=== PATIENT | male | born 1990 | race Caucasian/White ===

== ENCOUNTER 2017-01-10 09:57 | Emergency (ER) | payer OTHER ==
[~2017-01-10] VITALS: Ht 180.3 cm; Wt 68.0 kg
[2017-01-10 10:00] VITALS: BP 143/81; PULSE 86; RESP 17; TEMP 97.9; O2SAT 98
[2017-01-10] MEDS ORDERED: SODIUM CHLOR 0.9% 1000 ML INJ 1,000 ML IV ONE (10:11)
[2017-01-10] MEDS ORDERED: ONDANSETRON HCL 4 MG/2 ML VIAL IVP ONE (10:15)
[2017-01-10] MEDS ORDERED: SODIUM CHLORIDE 0.9% FLUSH 10 ML FLUSH IVF PRN (10:15)
--- NOTE | 2017-01-10 10:20 | PD ---
HPI Chief Complaint: Syncope/Near-Syncope Time Seen by Provider: 10:15 Travel History International Travel<30 days: No Contact w/Intl Traveler<30days: No Traveled to known affect area: No History of Present Illness HPI Patient is a 26-year-old male presenting to the emergency department for evaluation of 2 syncopal episodes last night. Patient states that approximately 12:30 AM he was standing in line at the [employer] when he became dizzy, lightheaded and nauseated. He attempted to go outside to sit down when he passed out. He got up again attempting to pay for his items when he states he felt very hot and then had a second syncopal episode. EMS was called and evaluated patient on scene, patient did not want to come to the emergency department last night. He is currently complaining of mild shortness of breath and a midsternal intermittent chest pain which she describes as sharp, lasting for a few seconds and rates it a 4 out of 10. He denies any recent illnesses but reports smoking marijuana consistently. He states that he does not believe it was laced with anything as it was obtained from a reliable source. Patient denies any significant past medical or surgical history. He has no known drug allergies. He does endorse daily tobacco use. [facility] Past Medical History Medical History: Denies Significant Hx Past Surgical History Surgical History: No Previous Surgery Social History Alcohol Use: No Tobacco Use: Yes Substance Use: Yes Allergies-Medications (Allergen,Severity, Reaction): Coded Allergies: UNOBTAINABLE (Unverified , 01/10/17) Review of Systems Except as stated in HPI: all other systems reviewed are Neg General / Constitutional: No: Fever Eyes: No: Blurred Vision HENT: No: Headaches Cardiovascular: Positive: Chest Pain or Discomfort Respiratory: Positive: Shortness of Breath Gastrointestinal: No: Nausea, Abdominal Pain Neurologic: Positive: Weakness (patient states his legs feel "shaky".) Physical Exam Narrative GENERAL: Well-developed, well-nourished, alert male. Resting comfortably in no acute distress. SKIN: Focused skin assessment warm/dry. HEAD: Atraumatic. Normocephalic. EYES: Pupils equal and round. No scleral icterus. No injection or drainage. ENT: No nasal bleeding or discharge. Mucous membranes pink and moist. NECK: Trachea midline. No JVD. CARDIOVASCULAR: Regular rate and rhythm. No murmur appreciated. RESPIRATORY: No accessory muscle use. Clear to auscultation. Breath sounds equal bilaterally. GASTROINTESTINAL: Abdomen soft, non-tender, nondistended. Hepatic and splenic margins not palpable. MUSCULOSKELETAL: No obvious deformities. No clubbing. No cyanosis. No edema. NEUROLOGICAL: Awake and alert. No obvious cranial nerve deficits. Motor grossly within normal limits. Normal speech. PSYCHIATRIC: Appropriate mood and affect; insight and judgment normal. Data Data Last Documented VS Vital Signs Date Time Temp Pulse Resp B/P Pulse Ox O2 Delivery O2 Flow Rate FiO2 01/10/17 10:57 84 14 107/59 100 Room Air 01/10/17 10:00 97.9 Orders Electrocardiogram (01/10/17 10:11) Basic Metabolic Panel (Bmp) (01/10/17 10:11) Complete Blood Count With Diff (01/10/17 10:11) Magnesium (Mg) (01/10/17 10:11) Ecg Monitoring (01/10/17 10:11) Iv Access Insert/Monitor (01/10/17 10:11) Oximetry (01/10/17 10:11) Ondansetron Inj (Zofran Inj) (01/10/17 10:15) Sodium Chloride 0.9% Flush (Ns Flush) (01/10/17 10:15) Sodium Chlor 0.9% 1000 Ml Inj (Ns 1000 M (01/10/17 10:11) Labs Laboratory Tests Test 01/10/17 10:35 White Blood Count 9.3 TH/MM3 Red Blood Count 4.88 MIL/MM3 Hemoglobin 14.2 GM/DL Hematocrit 42.8 % Mean Corpuscular Volume 87.8 FL Mean Corpuscular Hemoglobin 29.2 PG Mean Corpuscular Hemoglobin 33.2 % Concent Red Cell Distribution Width 12.4 % Platelet Count 218 TH/MM3 Mean Platelet Volume 7.7 FL Neutrophils (%) (Auto) 62.7 % Lymphocytes (%) (Auto) 28.7 % Monocytes (%) (Auto) 6.9 % Eosinophils (%) (Auto) 1.5 % Basophils (%) (Auto) 0.2 % Neutrophils # (Auto) 5.8 TH/MM3 Lymphocytes # (Auto) 2.7 TH/MM3 Monocytes # (Auto) 0.6 TH/MM3 Eosinophils # (Auto) 0.1 TH/MM3 Basophils # (Auto) 0.0 TH/MM3 CBC Comment DIFF FINAL Differential Comment MDM Medical Decision Making Medical Screen Exam Complete: Yes Emergency Medical Condition: Yes Interpretation(s) Laboratory Tests Test 01/10/17 10:35 White Blood Count 9.3 TH/MM3 Red Blood Count 4.88 MIL/MM3 Hemoglobin 14.2 GM/DL Hematocrit 42.8 % Mean Corpuscular Volume 87.8 FL Mean Corpuscular Hemoglobin 29.2 PG Mean Corpuscular Hemoglobin 33.2 % Concent Red Cell Distribution Width 12.4 % Platelet Count 218 TH/MM3 Mean Platelet Volume 7.7 FL Neutrophils (%) (Auto) 62.7 % Lymphocytes (%) (Auto) 28.7 % Monocytes (%) (Auto) 6.9 % Eosinophils (%) (Auto) 1.5 % Basophils (%) (Auto) 0.2 % Neutrophils # (Auto) 5.8 TH/MM3 Lymphocytes # (Auto) 2.7 TH/MM3 Monocytes # (Auto) 0.6 TH/MM3 Eosinophils # (Auto) 0.1 TH/MM3 Basophils # (Auto) 0.0 TH/MM3 CBC Comment DIFF FINAL Differential Comment Vital Signs Date Time Temp Pulse Resp B/P Pulse Ox O2 Delivery O2 Flow Rate FiO2 01/10/17 10:10 14 99 Room Air 01/10/17 10:00 97.9 86 17 143/81 98 Differential Diagnosis Cardiac arrhythmia versus electrolyte abnormality versus substance abuse versus Narrative Course He is a 26-year-old male with no significant past medical history presenting to emergency department for evaluation of 2 syncopal episodes last night. Patient is neurologically intact, EKG shows sinus rhythm with incomplete right bundle branch block. Labs unremarkable. Patient was also seen and evaluated by my attending physician. Patient was reassured that there were no acute findings. Is encouraged to follow up with primary care doctor, avoid illicit drug use. He was encouraged return to emergency department for any new or worsening symptoms. Patient mother verbalized understanding of these instructions. Patient is stable for discharge. Diagnosis Primary Impression: Syncope Qualified Code: R55 - Syncope, unspecified syncope type Referrals: Primary Care Physician Patient Instructions: General Instructions, Syncope (ED) Additional Instructions: Follow-up with a primary care physician Return to emergency department new or worsening symptoms Maintain adequate fluid intake Avoid illicit drug use Med/Other Pt SpecificInfo: No Change to Meds Disposition: 01 DISCHARGE HOME Condition: Stable Kathleen Newton Jan 10, 2017 10:20
[2017-01-10 10:49] LABS: AUTOMATED NEUTROPHIL # 5.8 TH/MM3 (1.8-7.7); BASOPHIL % 0.2 % (0.0-2.0); EOSINOPHIL # 0.1 TH/MM3 (0-0.4); EOSINOPHIL % 1.5 % (0.0-4.0); HEMATOCRIT 42.8 % (39.0-51.0); HEMO FLAGS DIFF FINAL; LYMPH % 28.7 % (9.0-44.0); LYMPHOCYTE # 2.7 TH/MM3 (1.0-4.8); MEAN CELL VOLUME 87.8 FL (80.0-100.0); MEAN CORPUSCULAR HEMOGLOBIN 29.2 PG (27.0-34.0); MEAN CORPUSCULAR HGB CONC 33.2 % (32.0-36.0); MONO % 6.9 % (0.0-8.0); NEUT % 62.7 % (16.0-70.0); PLATELET COUNT 218 TH/MM3 (150-450); RED BLOOD COUNT 4.88 MIL/MM3 (4.50-5.90); RED CELL DISTRIBUTION WIDTH 12.4 % (11.6-17.2); WHITE BLOOD COUNT 9.3 TH/MM3 (4.0-11.0)
[2017-01-10 10:57] VITALS: BP 107/59; PULSE 84; RESP 14; O2SAT 100
[2017-01-10 11:06] LABS: MAGNESIUM 2.2 MG/DL (1.5-2.5)
--- NOTE | 2017-01-10 11:08 | PD ---
Data Data Last Documented VS Vital Signs Date Time Temp Pulse Resp B/P Pulse Ox O2 Delivery O2 Flow Rate FiO2 01/10/17 10:57 84 14 107/59 100 Room Air 01/10/17 10:00 97.9 Orders Electrocardiogram (01/10/17 10:11) Basic Metabolic Panel (Bmp) (01/10/17 10:11) Complete Blood Count With Diff (01/10/17 10:11) Magnesium (Mg) (01/10/17 10:11) Ecg Monitoring (01/10/17 10:11) Iv Access Insert/Monitor (01/10/17 10:11) Oximetry (01/10/17 10:11) Ondansetron Inj (Zofran Inj) (01/10/17 10:15) Sodium Chloride 0.9% Flush (Ns Flush) (01/10/17 10:15) Sodium Chlor 0.9% 1000 Ml Inj (Ns 1000 M (01/10/17 10:11) Labs Laboratory Tests Test 01/10/17 10:35 White Blood Count 9.3 TH/MM3 Red Blood Count 4.88 MIL/MM3 Hemoglobin 14.2 GM/DL Hematocrit 42.8 % Mean Corpuscular Volume 87.8 FL Mean Corpuscular Hemoglobin 29.2 PG Mean Corpuscular Hemoglobin 33.2 % Concent Red Cell Distribution Width 12.4 % Platelet Count 218 TH/MM3 Mean Platelet Volume 7.7 FL Neutrophils (%) (Auto) 62.7 % Lymphocytes (%) (Auto) 28.7 % Monocytes (%) (Auto) 6.9 % Eosinophils (%) (Auto) 1.5 % Basophils (%) (Auto) 0.2 % Neutrophils # (Auto) 5.8 TH/MM3 Lymphocytes # (Auto) 2.7 TH/MM3 Monocytes # (Auto) 0.6 TH/MM3 Eosinophils # (Auto) 0.1 TH/MM3 Basophils # (Auto) 0.0 TH/MM3 CBC Comment DIFF FINAL Differential Comment MDM Supervised Visit with KAILASH: Yes Narrative Course I, Dr. Mcguire, have reviewed the advance practice practioner's documentation and am in agreement, met with the patient face to face, made the diagnosis, and the medical decision making was done by me. *My assessment and Findings: Healthy 26-year-old male here with complaint of syncopal episode 2 last night. States that he was standing in line at a gas station when he felt hot, nauseous, presyncopal and had a brief syncopal episode. Patient stood up and had a second syncopal episode thereafter. He denies any chest pain, shortness of breath or palpitations at the time. No family history of prolonged QT, WPW or Brugada. On exam patient has regular rate and rhythm, clear to auscultation with normal neuro exam. Differential includes vasovagal, anemia, electrolyte abnormality, arrhythmia. Twelve-lead EKG shows incomplete right bundle branch block, labs are unremarkable. Patient reassured and discharged home. Amanda Mcguire MD Jan 10, 2017 11:08
--- NOTE | 2017-01-10 18:45 | EKG ---
Date Performed: 01/10/2017 Time Performed: 10:23:52 PTAGE: 26 years EKG: Sinus rhythm WITH SINUS ARRHYTHMIA POSSIBLE RIGHT VENTRICULAR CONDUCTION DELAY BORDERLINE ECG NO PREVIOUS TRACING DOCTOR: Charan Cali Interpretating Date/Time 01/10/2017 18:40:48
== END 2017-01-10 11:42 | disposition home or self-care (01) ==
LOC: NEPD 09:57
DX: R55 Syncope and collapse (principal); R07.9 Chest pain, unspecified; R06.02 Shortness of breath; F12.90 Cannabis use, unspecified, uncomplicated; Z72.0 Tobacco use
CPT/HCPCS: 80048; 83735; 85025; 93005; 96374; 99284; J2405; J7030